=== PATIENT | male | born 1960 ===

== ENCOUNTER 2024-09-12 08:04 | Outpatient (AMB) | payer OTHER, SELFPAY ==
--- NOTE | 2024-09-12 08:12 | MHC.OFFVIS ---
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 Accompanied by: Spouse Allergies amoxicillin Allergy (Verified 09/12/24 08:18) Rash iodine Allergy (Verified 09/12/24 08:18) Unknown meperidine (From Demerol) Allergy (Verified 09/12/24 08:18) Unknown shellfish derived Allergy (Verified 09/12/24 08:18) Unknown Medication List - Last Reconciled 09/12/24 by Aleja Olivas PA-C blood sugar diagnostic (FreeStyle Lite Strips) Uses twice daily as directed for monitoring glucose blood-glucose sensor (FreeStyle Keila 3 Plus Sensor device) As directed blood-glucose,maintenance technician,cont (FreeStyle Keila 3 [place]) As directed dulaglutide (Trulicity) 0.75 mg subcut QWEEK lancets (FreeStyle Lancets) As directed HPI HPI Diabetes Type 2: Details: A 64-year-old male who presents today for an initial consultation regarding his type 2 diabetes. He reports a significant past medical history of hyperlipidemia and states that he is working very hard on diet. Endo: He was diagnosed with diabetes 2019. His last A1c at his PCP's office was 7.6. He is currently on Trulicity 0.75 mg weekly. He states since being on Trulicity his blood sugar numbers have significantly improved. He has also lost weight with this medication and is trying very hard to change his lifestyle. He was previously on metformin but this caused significant diarrhea and GI upset. He has been off of it for about a month in his feeling a lot better. cgm-average use 96%, G mi 6.4%. 0% very hyperglycemic, 2% hyperglycemic, 98% in range, 0% hypoglycemic His mother has type 2 diabetes CV: Blood pressure today in the office is 140/76. He is not on any antihypertensives or statins. He is trying hard to work on his diet to lower his cholesterol. [facility] Medical History (Updated 09/12/24 @ 08:58 by Aelja Olivas PA-C) History of tobacco use History of hyperlipidemia History of type 2 diabetes mellitus Surgical History No pertinent past surgical history Family History Father No problems noted. Mother Type 2 diabetes mellitus Sickle cell disease Brother Type 2 diabetes mellitus Social History Patient Tobacco Use Status: Current everyday Tobacco user Physical Exam Vital Signs: Last Vital Signs Pulse 67 09/12/24 08:13 BP 140/76 H 09/12/24 08:13 Pulse Ox 97 09/12/24 08:13 Oxygen Delivery Method Room Air 09/12/24 08:13 BMI result Body Mass Index 31.2 Const Orientation/consciousness: patient oriented x3 HEENT Ears: hearing grossly normal bilaterally Neck Thyroid: Thyroid normal Lymphatic: no lymphadenopathy noted Resp Auscultation: clear to auscultation bilaterally Cardio Rate: regular rate Rhythm: regular rhythm Heart sounds: S1 normal heart sound present and S2 normal heart sound present Skin General skin exam: no rashes or lesions noted Neuro General: patient oriented x3, gait normal and no focal motor deficits Assessment & Plan Assessment & Plan (1) Controlled type 2 diabetes mellitus: Code(s): E11.9 - Type 2 diabetes mellitus without complications Category: Medical Plan: We spent 65 minutes in [id number] time today reviewing the pathophysiology of diabetes, the differences between type 1 and type 2 diabetes and complications associated with diabetes including but not limited to kidney disease, blindness, increased risk of amputations, infections, stroke, heart attack etc.. I have answered his questions in his 's questions to the best of my ability. We reviewed signs and symptoms of hyper and hypoglycemia that would require emergent medical treatment. Reviewed how to treat low blood sugars. We reviewed his CGM and how to use this today. Backup testing supplies ordered. He will continue with the Trulicity 0.75 mg weekly as this is effective for him. I have referred him to our coconut candy maker as he is very motivated to continue with his healthy lifestyle. He has reduced carbohydrate and sugar intake. His is trying to get him to increase his exercise. He has an appointment coming up with Education. (2) HLD (hyperlipidemia): Code(s): E78.5 - Hyperlipidemia, unspecified Category: Medical Plan: We will monitor labs. Advised to complete labs prior to our next appointment. Orders: Orders Comprehensive Vevay. Panel Fast Today E11.9 - Type 2 diabetes mellitus without complications, E78.5 - Hyperlipidemia, unspecified Lipid Panel Today E11.9 - Type 2 diabetes mellitus without complications, E78.5 - Hyperlipidemia, unspecified Hemoglobin A1c Today E11.9 - Type 2 diabetes mellitus without complications, E78.5 - Hyperlipidemia, unspecified, R73.01 - Impaired fasting glucose UA CC w/rflx Micro + Cult Today E11.9 - Type 2 diabetes mellitus without complications, E78.5 - Hyperlipidemia, unspecified, Z13.220 - Encounter for screening for lipoid disorders Referrals St[facility] Block Roller Nutrition Referral E11.9 - Type 2 diabetes mellitus without complications Podiatry Referral E11.9 - Type 2 diabetes mellitus without complications Medications: New dulaglutide (Trulicity) 0.75 mg (0.5 mL) subcut QWEEK 6 mL 3RF blood sugar diagnostic (FreeStyle Lite Strips) Uses twice daily as directed for monitoring glucose 100 ea 3RF E11.9 - Type 2 diabetes mellitus without complications lancets (FreeStyle Lancets) Use twice a day As directed to monitor blood sugars 100 ea 3RF E11.9 - Type 2 diabetes mellitus without complications Coding Level of Care Code New Pt Level 5 (76759) Complex EM visit Add On G2211 Diagnoses Controlled type 2 diabetes mellitus E11.9 HLD (hyperlipidemia) E78.5
[2024-09-12 08:13] VITALS: BP 140/76; PULSE 67; O2SAT 97; BMI 31.2
[2024-09-12 08:25] LABS: Glucose, Whole Blood 107 mg/dL (60-115)
== END 2024-09-12 09:00 | disposition home or self-care (01) ==
LOC: HO.ENCR 08:04
PROVIDERS: PCP Nurse Practitioner Primary Care; Visit Provider Physician Assistant
DX: E11.9 Type 2 diabetes mellitus without complications (principal); E78.5 Hyperlipidemia, unspecified

== ENCOUNTER → 2024-09-12 08:04 | Outpatient (BNVA) | payer OTHER, SELFPAY | PROVIDERS: PCP Nurse Practitioner Primary Care; Visit Provider Physician Assistant | DX: E11.9 Type 2 diabetes mellitus without complications (principal); E78.5 Hyperlipidemia, unspecified; Z79.85 Long-term (current) use of injectable non-insulin antidiabetic drugs | CPT/HCPCS: 82947 ==

== ENCOUNTER 2024-10-28 12:12 | Outpatient (AMB) | payer OTHER, SELFPAY ==
--- NOTE | 2024-10-28 12:30 | A.OFFVIS_ITS ---
VS Expanded 10/28/24 12:32 10/30/24 21:13 Height 5 ft 8 in 5 ft 8 in Weight 202 lb 6.15 oz 202 lb BMI 30.8 30.7 Intake Visit Reasons: T2DM Allergies amoxicillin Allergy (Verified 09/12/24 08:18) Rash iodine Allergy (Verified 09/12/24 08:18) Unknown meperidine (From Demerol) Allergy (Verified 09/12/24 08:18) Unknown shellfish derived Allergy (Verified 09/12/24 08:18) Unknown Nutrition Presentation Details: Pt presents for MNt for T2DM Pt reports eating a variety of foods, working on diet modifications for gluc control.has questions regarding macro 14 d BG average per CGM 94% WNL, 6% above 180, no hypoglycemia XFN-Zpblthv-Sm.Jeor Equation Height: 5 ft 8 in Weight: 202 lb Resting Metabolic Rate: 1694.80 Calculated Activity Level: Sedentary Calories Needed to Maintain Weight: 2033.76 Diagnosis Nutrition problem #1: food nutri know defi As related to (etiology) #1: diagnosis As evidenced by (sign/symptom) #1: knowledge deficit of diet (omega 3 source of foods) [facility] Medical History (Updated 09/12/24 @ 08:58 by Aleja Olivas PA-C) History of tobacco use History of hyperlipidemia History of type 2 diabetes mellitus Surgical History No pertinent past surgical history Family History Father No problems noted. Mother Type 2 diabetes mellitus Sickle cell disease Brother Type 2 diabetes mellitus Social History Patient Tobacco Use Status: Current everyday Tobacco user Assessment & Plan Assessment & Plan (1) Controlled type 2 diabetes mellitus: Code(s): E11.9 - Type 2 diabetes mellitus without complications Category: Medical Plan: current wt: 92 kg ( 11/06 ) est kcal needs as per MSJ: 2000 est protein needs as per 1 g/kg BW: 90 est fluid needs as per 30 ml/kg BW: 2800' Na <2300mg/d Recommended fiber > 12 g /day and gradually increase up to 25-28 g /day or as tolerated Nutrition topics discussed : Reviewed (R), Pt verbalized understanding (V) , not applicable (N/A) R, V, A : Healthy Plate Method Concept: R, V, : Carbohydrates: food sources of carbohydrates, relationship of carbohydrates to blood glucose, fatty liver GI health. Recommended total amount of carbohydrates per meals and snack. Differences between simple carbohydrates and complex carbohydrates R, V, : Lean protein foods including vegan , vegetarian sources of protein. Benefits of protein (including but not limited to healing, nutritional value , benefits in weight loss, glucose control R, : Fats : Source of fats, benefits of fats. Difference between saturated and unsaturated fats. Saturated fats and its contribution to inflammation R, : Fiber: food sources and role of fiber in the diet (including but not limited to its role as a prebiotic, benefits in constipation, role in IBS , role in glucose control and cholesterol level) R, V, : Hydration: role of hydration and prevention of dehydration or over hydration. Foods and water content. R, V, N/A: Vitamins and Minerals in foods and supplements R, V, N/A: Interpreting food labels, including serving size, macronutrients, vitamins, minerals, allergens, ingredient list , % daily value Patient Instructions: Continue working on reducing on saturated fats (dairy processed meats , fried foods) Include fish at least twice a week and snack on nuts 2-3 times/wk Coding Level of Care Code Nutr Indiv Intake (16969) Diagnoses Controlled type 2 diabetes mellitus E11.9 Time Spent (min) 30
[2024-10-28 12:32] VITALS: BMI 30.8
--- OUTSIDE RECORDS SUMMARY | 2024-10-28 16:18 | XMS_ITS | Clinical Summary ---
Author Organization [facility] Address [address] [facility] [address] [place] [address] Phone Care Team Providers Care Uniform Designer Name Role Phone Shawna Lopez ALICE Unavailable [phone] Estela Russ MD Primary Care Provider Allergies Active Allergy Reactions Criticality Noted Date Comments Amoxicillin 09/20/2018 Shellfish Containing Products 2018 Medications metFORMIN (GLUCOPHAGE) 500 MG tablet TAKE 1 TABLET BY MOUTH FOUR TIMES DAILY FOR A TOTAL DAILY DOSE OF 2000 MG 08/22/2023 Active triamcinolone acetonide 0.5 % cream 08/21/2023 Active cyanocobalamin, vitamin B-12, 1000 MCG tablet Take 1 tablet (1,000 mcg total) by mouth daily. 90 tablet 10/30/2023 Active gabapentin (NEURONTIN) 100 MG capsule Take 1 capsule (100 mg total) by mouth 3 (three) times a day for 5 days. 15 capsule 09/17/2024 Active Active Problems Problem Noted Date Diagnosed Date Leukocytosis 10/16/2023 Assessment & Plan (10/30/2023 10:10 AM EDT): Chronic mild leukocytosis and an otherwise well 63-year-old male, chronic smoker. It is most likely this leukocytosis is secondary to smoking. Patient also reports some dental/oral concerns. He has been seen in the past 6 months by his dentist who told him he would need dentures eventually. There is no evidence of a primary hematologic disorder other than borderline B12 levels on metformin. He will start B12 replacement and follow up with primary care. I have reviewed the importance of smoking cessation. I have answered all questions to his satisfaction. Follow-up on a prn basis. Note will be sent to referring provider. Assessment & Plan (10/16/2023 12:09 PM EDT): Chronic mild leukocytosis and an otherwise well 63-year-old male, chronic smoker. It is most likely this leukocytosis is secondary to smoking. Patient also reports some dental/oral concerns. He has been seen in the past 6 months by his dentist who told him he would need dentures eventually. It is unlikely that he has a primary hematologic disorder and he is up-to-date with cancer screening; however further testing will take place due to his mild fatigue. B12 deficiency more common with chronic metformin administration; will check B12 levels. I have reviewed the importance of smoking cessation. I have answered all questions to his satisfaction. Follow-up in 2 weeks. Chronic fatigue 10/16/2023 Encounters Date Type Department Care Team Description 09/17/2024 7:59 PM EDT - 09/18/2024 12:34 AM EDT Emergency [facility] [address] [place] [id number] Ping Jimenez MD Kanter, Carolyn R, MD Discharge Disposition: Home or Self Care 09/17/2024 Procedure Pass [facility], Ct [address] [address] 09/17/2024 Procedure Pass [facility], [address] [address] from Last 3 Months Social History Tobacco Use Types Packs/Day Years Used Date Smoking Tobacco: Every Day Smokeless Tobacco: Never Alcohol Use Standard Drinks/Week Comments Yes 0 (1 standard drink = 0.6 oz pur e alcohol) Education Answer Date Recorded Are you interested in more education? Not on hiram e 06/08/2022 Are you concerned about learning? Not on file 06/08/2022 No 06/08/2022 No 06/08/2022 Food Answer Date Recorded Within the past 6 months we worried whether our food would run out before we got money to buy more. Never True 09/17/2024 Within the past 6 months the food we bought just didn't last and we didn't have enough money to get more. Never True Residential Stability Answer Date Recor ded What is your housing situation today? I have cely guy 09/17/2024 How many times have you move d in the past 12 months? Zero (I did not move) 09/17/2024 Paying for Meds Answer Date Recorded Do you have trouble paying for medicines? No 09/17/2024 Paying Utility Bills Answer Date Record ed Do you have trouble paying your heating or elect ricity bill? No 09/17/2024 Transportation Answer Date Recorded Has the lack of transportati on kept you from medical appointments or from getting medications? No 09/17/2024 Digital Access Answer Date Recorded No 09/17/2024 Yes 09/17/2024 Do you have reliable internet access at home? Ye s 09/17/2024 Do you have a device (e.g., phone, tablet, computer) with a working camera? Yes 09/17/2024 Intimate Partner Violence Answer Date R ecorded Are you denied basic needs s uch as food, clothing, or medical care? No 09/17/2024 In the past 12 months have y ou been in a relationship with a person who hurts, threatens, or tries to control you? No 09/17/2024 Are you denied basic needs s uch as food, clothing, or medical care? No 09/17/2024 In the past 12 months have y ou been in a relationship with a person who hurts, threatens, or tries to control you? No 09/17/2024 Sex and Gender Information Value Date Recorded Sex Assigned at Male 09/20/2018 5:44 AM EDT Legal Sex Male 7:42 PM EST Gender Identity Male 09/20/2018 5:44 AM EDT Sexual Orientation Straight 09/20/2018 5: 44 AM EDT Last Filed Vital Signs Vital Sign Reading Time Taken Comments Blood Pressure 132/82 09/17/2024 11:16 PM EDT Pulse 68 09/17/2024 11:16 PM EDT Temperature 36.3 C (97.3 F) 09/17/2024 11:16 PM EDT Respiratory Rate 16 09/17/2024 11:16 PM EDT Oxygen Saturation 96% 09/17/2024 11:16 PM EDT Inhaled Oxygen Concentration - - Weight 91.6 kg (202 lb) 09/17/2024 6:49 PM EDT Height 172.7 cm (5' 8 ) 09/17/2024 6:49 PM EDT Body Mass Index 30.71 09/17/2024 6:49 PM EDT Plan of Treatment Health Maintenance Due Date Last Done Comments LIPID PANEL 1962 DEPRESSION SCREENING 1974 SMOKING Hx and SMOKELESS TOBACCO SCREENING 06/10/1975 HEPATITIS C SCREENING 1980 HIV ONE-TIME SCREENING (18-6 5 YEARS) 1980 PNEUMOCOCCAL VACCINES (50+ years) (1 of 2 - PCV) 1981 COLOGUARD 06/10/2007 COLONOSCOPY 06/10/2007 COLORECTAL CANCER SCREENING 06/10/2007 FIT TEST 06/10/2007 FOBT 06/10/2007 SIGMOIDOSCOPY 06/10/2007 VIRTUAL COLONOSCOPY 06/10/2007 ZOSTER VACCINES (1 of 2) 2012 INFLUENZA VACCINE (#1) 2024 01/21/2020 COVID-19 VACCINE (3 - 2024-2 6 season) 2024 05/11/2020, 04/13/2020 CREATININE LEVEL 09/17/2025 09/17/2024, 10/16/2023 SCREENING FOR DIABETES 09/18/2027 09/17/2024 Adult Td,Tdap Booster 02/28/2030 02/29/2020 RSV VACCINE (1 - 1-dose 75+ series) 2037 HEPATITIS A VACCINES Aged Out No long er eligible based on patient's age to complete this topic HIB VACCINES Aged Out No longer eligi ble based on patient's age to complete this topic MENINGOCOCCAL VACCINES (ACWY) Aged Out No longer eligible based on patient's age to complete this topic MENINGOCOCCAL VACCINES (B) Aged Out N o longer eligible based on patient's age to complete this topic Medical Devices Not on file Procedures Procedure Name Priority Date/Time Associated Diagnosis Comments LYME SCREEN WITH REFLEX TO WESTERN BLOT, BLOOD STAT 09/17/2024 10:36 PM EDT BABESIA SPECIES PCR STAT 09/17/2024 1 0:36 PM EDT MALARIA/BABESIA EXAM STAT 09/17/2024 10:36 PM EDT Ehrlichia/anaplasma PCR STAT 09/17/2024 10:[address] CERVICAL SPINE WITHOUT CONTRAST Routine 09/17/2024 9:[address] HEAD WITHOUT CONTRAST Routine 09/17/2024 9:40 PM EDT SEDIMENTATION RATE (ESR) STAT 09/17/2024 8:36 PM EDT C-REACTIVE PROTEIN STAT 09/17/2024 8: 36 PM EDT URIC ACID STAT 09/17/2024 8:36 PM EDT MAGNESIUM STAT 09/17/2024 8:36 PM EDT LFTS (HEPATIC PANEL) STAT 09/17/2024 8:36 PM EDT BASIC METABOLIC PANEL STAT 09/17/2024 8:36 PM EDT CBC AND DIFFERENTIAL STAT 09/17/2024 8:36 PM EDT from Last 3 Months Results * Babesia species PCR (09/17/2024 10:36 PM EDT) B.Microti PCR Negative Negative [facility] DPT OF LAB MED AND PAT+ B.Duncani PCR Negative Negative [facility] DPT OF LAB MED AND PAT+ B.Divergens/MO-1 PCR Negative Negative [facility] DPT OF LAB MED AND PAT+ Comment: (NOTE) ADDITIONAL INFORMATION This test was developed and its performance characteristics determined by [facility] in a manner consistent with CLIA requirements. This test has not been cleared or approved by the U.S. Food and Drug Administration. Blood 09/17/2024 10:3 6 PM EDT 09/17/2024 10:51 PM EDT Ping Jimenez MD LAB BLOOD ORDERABLES Lupis l Result Performing Organization Address City/[facility]/ZIP Co de Phone Number [facility] DPT OF LAB MED AND PAT+ [address] [place] [address] * Ehrlichia/anaplasma PCR (09/17/2024 10:36 PM EDT) ANAPLASMA PHAGOCYTO Negative Negative [facility] DPT OF LAB MED AND PAT+ EHRLICHIA CHAFFEENS Negative Negative [facility] DPT OF LAB MED AND PAT+ EHRL EWINGII/CANIS Negative Negative [facility] DPT OF LAB MED AND PAT+ EHRL MURIS-LIKE Negative Negative [facility] DPT OF LAB MED AND PAT+ Comment: (NOTE) ADDITIONAL INFORMATION This test was developed and its performance characteristics determined by [facility] in a manner consistent with CLIA requirements. This test has not been cleared or approved by the U.S. Food and Drug Administration. Blood 09/17/2024 10:3 6 PM EDT 09/17/2024 10:51 PM EDT Ping Jimenez MD LAB BLOOD ORDERABLES Lupis l Result Performing Organization Address City/[facility]/ZIP Co de Phone Number [facility] DPT OF LAB MED AND PAT+ [address] [place] [address] * Lyme Screen with Reflex to Immunoblot, Blood (09/17/2024 10:36 PM EDT) Lyme AB IgG Negative Negative [facility] Lyme AB IgM Negative Negative [facility] Blood 09/17/2024 10:3 6 PM EDT 09/17/2024 10:51 PM EDT us Ping Jimenez MD LAB BLOOD ORDERABLES Lupis l Result Performing Organization Address City/[facility]/ZIP Co de Phone Number [address] [address] * MALARIA/BABESIA EXAM (09/17/2024 10:36 PM EDT) Special Requests None 09/17/2024 10:21 PM EDT [facility] MALARIA SMEAR No Malaria or Babesia observed 09/18/2024 7:17 AM EDT [facility] Blood (Blood) 09/17/2024 10: 36 PM EDT 09/17/2024 10:51 PM EDT Ping Jimenez MD NON CULTURE MICROBIOLOGY Final Result Performing Organization Address [facility] Co de Phone Number [address] [address] * CT CERVICAL SPINE WITHOUT CONTRAST (09/17/2024 9:40 PM EDT) Anatomical Region Laterality Modality C-spine Computed Tomogra phy 09/17/2024 10:4 1 PM EDT Impressions 09/17/2024 11:46 PM EDT 1. No acute intracranial findings. No intracranial mass. 2. No acute fracture or traumatic malalignment of the cervical spine. ATTESTATION: I, Tor Garay as teaching physician, have reviewed the images for this case and if necessary edited the report originally created by Naga Magallon. Narrative 09/17/2024 11:[address] HEAD WITHOUT CONTRAST, CT CERVICAL SPINE WITHOUT CONTRAST Referring clinician's provided indication for this examination in Epic: * Brain mass or lesion; r/o brain mass or lesion, patient having worsening neck pain, r/o fractures TECHNIQUE: CTs of the head and cervical spine were performed without intravenous contrast using tailored dose modulation techniques. Images were reconstructed in the axial, coronal, and sagittal planes. COMPARISON: None. FINDINGS: HEAD: Brain Parenchyma: No midline shift, mass effect, parenchymal hemorrhage, or evidence of acute territorial infarct. Ventricular System and Extra-Axial Spaces: No extra-axial fluid collections. Basal cisterns are patent. No hydrocephalus. Osseous and Extracranial Structures: No calvarial fracture or significant soft tissue hematoma. Mucosal thickening within bilateral maxillary sinuses and ethmoid air cells. No orbital abnormality. CERVICAL SPINE: Alignment and Vertebrae: Alignment is normal. Vertebral bodies and posterior elements are intact. Discs and Endplates: Mild degenerative changes of the spine. Other Findings: None. Procedure Note Tor Garay, DO - 09/17/2024 CT HEAD WITHOUT CONTRAST, CT CERVICAL SPINE WITHOUT CONTRAST Referring clinician's provided indication for this examination in Epic: *Brain mass or lesion; r/o brain mass or lesion, patient having worseningneck pain, r/o fractures TECHNIQUE: CTs of the head and cervical spine were performed withoutintravenous contrast using tailored dose modulation techniques. Imageswere reconstructed in the axial, coronal, and sagittal planes. COMPARISON: None. FINDINGS: HEAD: Brain Parenchyma: No midline shift, mass effect, parenchymal hemorrhage,or evidence of acute territorial infarct. Ventricular System and Extra-Axial Spaces: No extra-axial fluidcollections. Basal cisterns are patent. No hydrocephalus. Osseous and Extracranial Structures: No calvarial fracture or significantsoft tissue hematoma. Mucosal thickening within bilateral maxillarysinuses and ethmoid air cells. No orbital abnormality. CERVICAL SPINE: Alignment and Vertebrae: Alignment is normal. Vertebral bodies andposterior elements are intact. Discs and Endplates: Mild degenerative changes of the spine. Other Findings: None. IMPRESSION: 1. No acute intracranial findings. No intracranial mass. 2. No acute fracture or traumatic malalignment of the cervical spine. ATTESTATION: I, Tor Garay as teaching physician, have reviewed theimages for this case and if necessary edited the report originally createdby Naga Magallon. us Ping Jimenez MD IMG CT XSPECIALTY ORDERAB LES Final Result * CT HEAD WITHOUT CONTRAST (09/17/2024 9:40 PM EDT) Anatomical Region Laterality Modality Head Computed Tomogra phy 09/17/2024 10:4 1 PM EDT Impressions 09/17/2024 11:46 PM EDT 1. No acute intracranial findings. No intracranial mass. 2. No acute fracture or traumatic malalignment of the cervical spine. ATTESTATION: I, Tor Garay as teaching physician, have reviewed the images for this case and if necessary edited the report originally created by Naga Magallon. Narrative 09/17/2024 11:[address] HEAD WITHOUT CONTRAST, CT CERVICAL SPINE WITHOUT CONTRAST Referring clinician's provided indication for this examination in [facility]: * Brain mass or lesion; r/o brain mass or lesion, patient having worsening neck pain, r/o fractures TECHNIQUE: CTs of the head and cervical spine were performed without intravenous contrast using tailored dose modulation techniques. Images were reconstructed in the axial, coronal, and sagittal planes. COMPARISON: None. FINDINGS: HEAD: Brain Parenchyma: No midline shift, mass effect, parenchymal hemorrhage, or evidence of acute territorial infarct. Ventricular System and Extra-Axial Spaces: No extra-axial fluid collections. Basal cisterns are patent. No hydrocephalus. Osseous and Extracranial Structures: No calvarial fracture or significant soft tissue hematoma. Mucosal thickening within bilateral maxillary sinuses and ethmoid air cells. No orbital abnormality. CERVICAL SPINE: Alignment and Vertebrae: Alignment is normal. Vertebral bodies and posterior elements are intact. Discs and Endplates: Mild degenerative changes of the spine. Other Findings: None. Procedure Note Tor Garay, DO - 09/17/2024 CT HEAD WITHOUT CONTRAST, CT CERVICAL SPINE WITHOUT CONTRAST Referring clinician's provided indication for this examination in [facility]: *Brain mass or lesion; r/o brain mass or lesion, patient having worseningneck pain, r/o fractures TECHNIQUE: CTs of the head and cervical spine were performed withoutintravenous contrast using tailored dose modulation techniques. Imageswere reconstructed in the axial, coronal, and sagittal planes. COMPARISON: None. FINDINGS: HEAD: Brain Parenchyma: No midline shift, mass effect, parenchymal hemorrhage,or evidence of acute territorial infarct. Ventricular System and Extra-Axial Spaces: No extra-axial fluidcollections. Basal cisterns are patent. No hydrocephalus. Osseous and Extracranial Structures: No calvarial fracture or significantsoft tissue hematoma. Mucosal thickening within bilateral maxillarysinuses and ethmoid air cells. No orbital abnormality. CERVICAL SPINE: Alignment and Vertebrae: Alignment is normal. Vertebral bodies andposterior elements are intact. Discs and Endplates: Mild degenerative changes of the spine. Other Findings: None. IMPRESSION: 1. No acute intracranial findings. No intracranial mass. 2. No acute fracture or traumatic malalignment of the cervical spine. ATTESTATION: I, Tor Garay as teaching physician, have reviewed theimages for this case and if necessary edited the report originally createdby Naga Magallon. Ping Jimenez MD IMG CT HEAD/NECK Final Re sult * LFTs (hepatic panel) (09/17/2024 8:36 PM EDT) ALKALINE PHOSPHATASE 57 39 - 117 U/L [facility] TOTAL BILIRUBIN <0.2 0.0 - 1.2 mg/dL [facility] DIRECT BILIRUBIN <0.1 0.0 - 0.2 mg/dL [facility] Bilirubin (Indirect) NOT CALCULATED 0 - 1.5 mg/dL [facility] AST 15 0 - 37 U/L [facility] ALT 22 0 - 40 U/L [facility] TOTAL PROTEIN 7.2 6.5 - 8.0 g/dL [facility] ALBUMIN 4.4 3.9 - 4.8 g/dL [facility] GLOBULIN 2.8 1 - 4.8 g/dL [facility] A/G Ratio 1.57 1.00 - 4.80 RATIO [facility] Blood 09/17/2024 8:36 PM EDT 09/17/2024 8:41 PM EDT Ping Jimenez MD LAB BLOOD ORDERABLES Lupis l Result [facility] [address] [place] [address] * Sedimentation rate (ESR) (09/17/2024 8:36 PM EDT) ESR 17 0 - 20 mm/h [facility] Blood 09/17/2024 8:36 PM EDT 09/17/2024 8:41 PM EDT us Ping Jimenez MD LAB BLOOD ORDERABLES Lupis l Result [facility] [address] [place] [address] * (ABNORMAL) CBC and differential (09/17/2024 8:36 PM EDT) WBC 12.11(H) 4.00 - 11.00 K/uL [facility] RBC 5.22 4.50 - 5.90 M/uL [facility] HGB 14.9 13.5 - 17.5 g/dL [facility] HCT 45.7 41.0 - 53.0 % [facility] PLT 347 150 - 450 K/uL [facility] MCV 87.5 80.0 - 100.0 fL [facility] MCH 28.5 27.0 - 31.0 pg [facility] MCHC 32.6 32.0 - 36.0 g/dL [facility] RDW 12.5 11.5 - 14.5 % [facility] MPV 9.9 8.4 - 12.0 fL [facility] NRBC 0.00 0.00 /100 WBCs [facility] ABSOLUTE NRBC 0.00 0.00 K/uL [facility] DIFF METHOD Auto [facility] NEUTS 54.3 48.0 - 76.0 % [facility] LYMPHS 34.0 18.0 - 41.0 % [facility] MONOS 7.8 4.0 - 11.0 % [facility] EOS 3.1 0.0 - 5.0 % [facility] BASOS 0.4 0.0 - 1.5 % [facility] Granulocytes, immature (%) 0.4 0.0 - 0.9 % [facility] ABSOLUTE NEUTS 6.58 1.92 - 7.60 K/uL [facility] ABSOLUTE LYMPHS 4.12(H) 0.72 - 4.10 K/uL [facility] ABSOLUTE MONOS 0.94 0.16 - 1.10 K/uL [facility] ABSOLUTE EOS 0.37 0.00 - 0.50 K/uL [facility] ABSOLUTE BASOS 0.05 0.00 - 0.15 K/uL [facility] Granulocytes, immature 0.05 0.00 - 0.09 K/uL [facility] Blood 09/17/2024 8:36 PM EDT 09/17/2024 8:41 PM EDT us Ping Jimenez MD LAB BLOOD ORDERABLES Lupis l Result Performing Organization Address [facility]/ZIP Co de Phone Number [address] [address] * C-Reactive Protein (09/17/2024 8:36 PM EDT) C REACTIVE PROTEIN <3.0 0.0 - 4.0 mg/L [facility] Blood 09/17/2024 8:36 PM EDT 09/17/2024 8:41 PM EDT us Ping Jimenez MD LAB BLOOD ORDERABLES Lupis l Result Performing Organization Address [facility]/ZIP Co de Phone Number [address] [address] * Uric acid (09/17/2024 8:36 PM EDT) URIC ACID 6.4 2.4 - 7.0 mg/dL [facility] Blood 09/17/2024 8:36 PM EDT 09/17/2024 8:41 PM EDT us Ping Jimenez MD LAB BLOOD ORDERABLES Lupis l Result Performing Organization Address City/[facility]/ZIP Co de Phone Number [address] [address] * Magnesium (09/17/2024 8:36 PM EDT) MAGNESIUM 2.1 1.6 - 2.6 mg/dL [facility] Blood 09/17/2024 8:36 PM EDT 09/17/2024 8:41 PM EDT Ping Jimenez MD LAB BLOOD ORDERABLES Lupis l Result Performing Organization Address [facility]/ZIP Co de Phone Number [address] [address] * (ABNORMAL) Basic metabolic panel (09/17/2024 8:36 PM EDT) SODIUM 140 133 - 146 mmol/L [facility] CHLORIDE 106 96 - 108 mmol/L [facility] POTASSIUM 4.2 3.3 - 5.1 mmol/L [facility] Comment:Specimen slightly he molyzed, result may be falsely elevated. CO2 22 21 - 35 mmol/L [facility] BUN 22(H) 6 - 19 mg/dL [facility] CREATININE 0.80 0.5 - 1.5 mg/dL [facility] GLUCOSE 118(H) 70 - 99 mg/dL [facility] CALCIUM 9.5 8.4 - 10.3 mg/dL [facility] EGFR 100 >59 mL/min/1.7 3m2 [facility] Comment:Estimated glomerular filtration rate calculated using the CKD-EPI refit equation. ANION GAP 16 10 - 20 mmol/L [facility] Blood 09/17/2024 8:36 PM EDT 09/17/2024 8:41 PM EDT Ping Jimenez MD LAB BLOOD ORDERABLES Lupis l Result Performing Organization Address [facility]/ZIP Co de Phone Number [address] [address] from Last [address] [place] [address] [place], [place] [id number] HMO O O Care Teams Uniform Designer Relationship Specialty Start Date End Date Estela Russ MD [address] [place] [address] juan PCP - General Family Medicine 10/16/23 Shawna Lopez MBBS [email or web address] Medical Oncology 09/21/23 Additional Source Comments The information contained in this document represents components of the legal health record. It is not the complete legal health record.[facility]
--- OUTSIDE RECORDS SUMMARY | 2024-10-28 16:18 | XMS_ITS | Encounter Summary ---
Author Organization [facility] Address [address] [place] [address] Phone Care Team Providers Care Backend Developer Name Role Phone Shawna Lopez CANDE Unavailable [phone] Estela Russ MD Primary Care Provider [phone] Encounter Details Date Type Department Care Team (Late st Contact Info) Description 09/17/2024 Procedure Pass [facility], Ct Scan - [address] [address] Social History Tobacco Use Types Packs/Day Years [...] your housing situation today? I have cely sing 09/17/2024 How many times have you move [...] Orientation Straight 09/20/2018 5: 44 AM EDT documented as of this encounter Functional Status * Calculated C-SSRS Risk Score (Lifetime/Recent) Answer Date of Assessment Author No Risk Indicated 09/17/2024 6:54 PM EDT Maki Quintana RN * [place] Suicide Severity Rating Scale (Screener/Recent Self-Report) Question Answer Date of Assessment Author 1. Wish to be (Past 1 Month) No 025 6:54 PM EDT Maki Gill RN 2. Non-Specific Active Suici maddy Thoughts (Past 1 Month) No 09/17/2024 6:54 PM EDT Branden Gill RN 6. Suicidal Behavior (Lifetime) No 6:54 PM EDT Maki Gill RN documented as of this encounter Plan of Treatment Not on file documented as of this encounter Visit Diagnoses Not on filedocumented in this encounter Care Teams Backend Developer Relationship Specialty Start Date End Date Estela Russ MD [address] [place] [id number] [email or web address] PCP - General Family Medicine 10/16/23 Shawna Lopez MBBS [email or web address] Medical Oncology 09/21/23 documented as of this encounter Additional Source Comments The information contained in this document represents components of the legal health record. It is not the complete legal health record.[facility]
--- OUTSIDE RECORDS SUMMARY | 2024-10-28 16:18 | XMS_ITS | Encounter Summary ---
Author Organization [facility] Address [address] [place] [address] Phone Care Team Providers Care Weekend Receptionist Name Role Phone Shawna Lopez CANDE Unavailable [phone] Estela Russ MD Primary Care Provider [phone] Encounter Details Date Type Department Care Team (Late st Contact Info) Description 09/17/2024 Procedure Pass [facility], Ct Scan - [address] [address] Social History Tobacco Use Types Packs/Day Years [...] 6:54 PM EDT Maki Quintana RN * [place] Suicide Severity Rating Scale (Screener/Recent Self-Report) Question [...] on filedocumented in this encounter Care Teams Weekend Receptionist Relationship Specialty Start Date End Date Estela Russ MD [address] [place] [address] [email or web address] PCP - General Family Medicine 10/16/23 Shawna Lopez MBBS [email or web address] Medical Oncology 09/21/23 documented as of this encounter Additional Source Comments The information contained in this document represents components of the legal health record. It is not the complete legal health record.[facility]
--- OUTSIDE RECORDS SUMMARY | 2024-10-28 16:18 | XMS_ITS | Encounter Summary ---
Author Organization [facility] Address [address] [facility] [address] [place] [address] Phone Care Team Providers Care Yard Pipe Grader Name Role Phone Estela Russ MD Primary Care Provider [phone] Shawna Lopez MB Unavailable [phone] Estela Russ MD Primary Care Provider [phone] Reason for Referral * MRI/CAT Scan - Closed Specialty Diagnoses / Procedures Referred By Leatha hanna Referred To Contact Radiology Diagnoses Nicotine dependence, cigarettes, uncomplicated Procedures CT Chest Lung Cancer Screening CHG COMPUTED TOMOGRAPHY THORAX LW DOSE LNG CA SCR C- Yuly Esqueda NP [address] [place] [address] Phone: tel: fax: Referral ID Status Reason Start Date Expiration Date Visits Re quested Visits Authorized [id number] Closed 11/23/2021 02/20/2022 1 1 Encounter Details Date Type Department Care Team (Late st Contact Info) Description 11/23/2021 Transcribe Orders Virtual Department [address] [place] [address] Yuly Esqueda NP [address] [place], [place] [phone] Nicotine dependence, cigarettes, uncomplicated (Primary Dx) Social History Tobacco Use Types Packs/Day Years Used Date Smoking Tobacco: Every Day Smokeless Tobacco: Never Alcohol Use Standard Drinks/Week Comments Yes 0 (1 standard drink = 0.6 oz pur e alcohol) Sex and Gender Information Value Date Recorded Sex Assigned at Male 09/20/2018 5:44 AM EDT Legal Sex Male 7:42 PM EST Gender Identity Male 09/20/2018 5:44 AM EDT Sexual Orientation Straight 09/20/2018 5: 44 AM EDT documented as of this encounter Plan of Treatment Not on file documented as of this encounter Results * CT CHEST LUNG CANCER SCREENING ANNUAL (01/31/2022 8:08 AM EST) Anatomical Region Laterality Modality Chest Computed Tomogra phy 02/01/2022 8:22 AM EST Impressions 02/01/2022 8:54 AM EST Multiple scattered pulmonary nodules the largest of which measures up to 5 mm. Lung-RADS Category: 2. RECOMMENDATIONS: Continue CT Chest Lung Screening Annual exam if patient meets eligibility criteria. To order, please type CT CHEST SCREENING ([email or web address]) and select ANNUAL for patient program status. Explanation of the Lung-RADS categories can be found at: [email or web address] Narrative 02/01/2022 8:[address] CHEST LUNG CANCER SCREENING ANNUAL TECHNIQUE: Low dose multidetector CT of the chest was performed without intravenous contrast using tailored dose modulation techniques. COMPARISON: There is no prior study available for FINDINGS: Devices/Tubes/Lines: None. Lungs: There is a 5 mm nodule at the anterior left upper lobe (4:180). There are scattered additional 2 to 3 mm nodules (4:77, 281, 235, 236, 247, and 178). No focal consolidation. The central airways are clear. Pleura: No pleural effusion or pneumothorax. Mediastinum: Atherosclerotic calcification of the aorta and major aortic branch vessels. No thyroid nodules. The heart is normal in size. There is no pericardial effusion. Mild amount of coronary calcifications. Lymph Nodes: No enlarged supraclavicular, axillary, mediastinal, or hilar lymph nodes. Upper Abdomen: Absence of intravenous contrast and low dose technique limits sensitivity for detecting small lesions, solid organ and vascular findings. No abnormality detected in the visualized upper abdomen. Chest Wall: No chest wall mass. Bones: Mild multilevel degenerative changes of the spine. Degenerative changes of the superior endplate of T5 mild height loss. No focal osseous lesions. Procedure Note Valerie Kelly MD - 02/01/2022 CT CHEST LUNG CANCER SCREENING ANNUAL TECHNIQUE: Low dose multidetector CT of the chest was performed withoutintravenous contrast using tailored dose modulation techniques. COMPARISON: There is no prior study available for FINDINGS: Devices/Tubes/Lines: None. Lungs: There is a 5 mm nodule at the anterior left upper lobe (4:180).There are scattered additional 2 to 3 mm nodules (4:77, 281, 235, 236,247, and 178). No focal consolidation. The central airways are clear. Pleura: No pleural effusion or pneumothorax. Mediastinum: Atherosclerotic calcification of the aorta and major aorticbranch vessels. No thyroid nodules. The heart is normal in size. There isno pericardial effusion. Mild amount of coronary calcifications. Lymph Nodes: No enlarged supraclavicular, axillary, mediastinal, or hilarlymph nodes. Upper Abdomen: Absence of intravenous contrast and low dose techniquelimits sensitivity for detecting small lesions, solid organ and vascularfindings. No abnormality detected in the visualized upper abdomen. Chest Wall: No chest wall mass. Bones: Mild multilevel degenerative changes of the spine. Degenerativechanges of the superior endplate of T5 mild height loss. No focal osseouslesions. IMPRESSION: Multiple scattered pulmonary nodules the largest of which measures up to 5mm. Lung-RADS Category: 2. RECOMMENDATIONS: Continue CT Chest Lung Screening Annual exam if patient meets eligibilitycriteria. To order, please type CT CHEST SCREENING (CT.TH.CHESTSCR) and selectANNUAL for patient program status. Explanation of the Lung-RADS categories can be found at:[email or web address] Yuly Esqueda NP IMG CT CHEST Final R esult documented in this encounter Visit Diagnoses Diagnosis Nicotine dependence, cigarettes, uncomplicated- Primary Nicotine dependence, cigarettes, uncomplicated documented in this encounter Care Teams Yard Pipe Grader Relationship Specialty Start Date End Date Estela Russ MD [email or web address] PCP - General Family Medicine 07/09/21 10/15/23 Estela Russ MD [address] [place] [address] [email or web address] PCP - General Family Medicine 10/16/23 Shawna Lopez MBBS [email or web address] Medical Oncology 09/21/23 documented as of this encounter Additional Source Comments The information contained in this document represents components of the legal health record. It is not the complete legal health record.[facility]
--- OUTSIDE RECORDS SUMMARY | 2024-10-28 16:18 | XMS_ITS | Encounter Summary ---
Author Organization [facility] Address [address] [facility] [address] [place] [address] Phone Care Team Providers Care Warehouse Receiving Clerk Name Role Phone Estela Russ MD Primary Care Provider [phone] Shawna LopezBS Unavailable [phone] Estela Russ MD Primary Care Provider [phone] Encounter Details Date Type Department Care Team (Late st Contact Info) Description 11/23/2021 Procedure Pass [facility], Ct Scan - [address] [address] Social History Tobacco Use Types Packs/Day Years [...] on filedocumented in this encounter Care Teams Warehouse Receiving Clerk Relationship Specialty Start Date End Date Estela Russ MD [email or web address] PCP - General Family Medicine 07/09/21 10/15/23 Estela Russ MD [address] [place] [address] [email or web address] PCP - General Family Medicine 10/16/23 Shawna Lopez MBBS [email or web address] Medical Oncology 09/21/23 documented as of this encounter Additional Source Comments The information contained in this document represents components of the legal health record. It is not the complete legal health record.[facility]
[2024-10-30 21:13] VITALS: BMI 30.7
== END 2024-10-28 13:12 | disposition home or self-care (01) ==
LOC: HO.ENCR 12:13
PROVIDERS: PCP Nurse Practitioner Primary Care; Visit Provider Dietitian, Registered
DX: E11.9 Type 2 diabetes mellitus without complications (principal)

== ENCOUNTER → 2024-10-28 12:12 | Outpatient (BNVA) | payer OTHER, SELFPAY | PROVIDERS: PCP Nurse Practitioner Primary Care; Visit Provider Dietitian, Registered | DX: E11.9 Type 2 diabetes mellitus without complications (principal) | CPT/HCPCS: 97802 ==

== ENCOUNTER 2025-01-02 07:48 | Outpatient (AMB) | payer OTHER, SELFPAY ==
--- OUTSIDE RECORDS SUMMARY | 2024-12-02 13:22 | XMS_ITS | Encounter Summary ---
Author Organization [facility] Address [address] [place] [address] Phone Care Team Providers Care Legal Internship Name Role Phone Shawna Lopez CANDE Unavailable [phone] Estela Russ MD Primary Care Provider Encounter Details Date Type Department Care Team (Late st Contact Info) Description 12/02/2024 2:22 PM EDT Hospital Encounter [facility] [address] [place] [address] Ladonna Ng CNP [address] [place] [address] [email or web address] Social History Tobacco Use Types Packs/Day Years [...] on file documented as of this encounter Procedures Procedure Name Priority Date/Time Associated Diagnosis Comments XR FINGER 2 OR MORE VIEWS (LEFT) Urgent/patient waiting 12/02/2024 2:26 PM EDT Infected sliver of skin of finger, initial encounter documented in this encounter Results * XR FINGER 2 OR MORE VIEWS (LEFT) (12/02/2024 2:26 PM EDT) Anatomical Region Laterality Modality Hand Left Computed Radiogr aphy 12/02/2024 3:23 PM EDT Impressions 12/02/2024 3:26 PM EDT No fracture or dislocation. No radiopaque foreign body. Narrative 12/02/2024 3:26 PM EDT XR FINGER 2 OR MORE VIEWS (LEFT) Referring clinician's provided indication for this examination in Epic: Infection; ? foreign body- primed wood- palmar srface PIP flexure COMPARISON: FINDINGS: No fracture. Normal alignment. Normal joint spaces. No evidence of osteomyelitis. Mild soft tissue swelling along the second proximal interphalangeal joint with small laceration. No radiopaque foreign body. Procedure Note Makayla Willoughby MBBS - 12/02/2024 XR FINGER 2 OR MORE VIEWS (LEFT) Referring clinician's provided indication for this examination in Epic:Infection; ? foreign body- primed wood- palmar srface PIP flexure COMPARISON: FINDINGS: No fracture. Normal alignment. Normal joint spaces. No evidence ofosteomyelitis. Mild soft tissue swelling along the second proximalinterphalangeal joint with small laceration. No radiopaque foreign body. IMPRESSION: No fracture or dislocation. No radiopaque foreign body. Ladonna Ng MATERIAL PLANNING ANALYST IMG XR UPPER EXTREMITY Lupis l Result documented in this encounter Visit Diagnoses Not on filedocumented in this encounter Care Teams Legal Internship Relationship Specialty Start Date End Date Estela Russ MD [address] [place] [address] [email or web address] PCP - General Family Medicine 10/16/23 Shawna Lopez MBBS [address] [place] [address] Medical Oncology 09/21/23 documented as of this encounter Additional Source Comments The information contained in this document represents components of the legal health record. It is not the complete legal health record.[facility]
--- OUTSIDE RECORDS SUMMARY | 2025-01-02 07:50 | XMS_ITS | Encounter Summary ---
Author Organization [facility] Address [address] [facility] [place] [address] [place] [address] Phone Care Team Providers Care Block Breaker Operator Name Role Phone Estela Russ MD Primary Care Provider [phone] Shawna Lopez MB Unavailable [phone] Estela Russ MD Primary Care Provider [phone] Reason for Referral * MRI/CAT Scan - Closed Specialty Diagnoses / Procedures Referred By Leatha hanna Referred To Contact Radiology Diagnoses Nicotine dependence, cigarettes, uncomplicated Procedures CT Chest Lung Cancer Screening CHG COMPUTED TOMOGRAPHY THORAX LW DOSE LNG CA SCR C- Yuly Esqueda NP [address] [place] [phone] Phone: tel: fax: Referral ID Status Reason Start Date Expiration Date Visits Re quested Visits Authorized [id number] Closed 11/23/2021 02/20/2022 1 1 Encounter Details Date Type Department Care Team (Late st Contact Info) Description 11/23/2021 Transcribe Orders Virtual Department [address] [place] [address] Yuly Esqueda NP [address] [place], [place] [phone] Nicotine dependence, cigarettes, uncomplicated (Primary Dx) Social [...] uncomplicated documented in this encounter Care Teams Block Breaker Operator Relationship Specialty Start Date End Date Estela Russ MD [email or web address] PCP - General Family Medicine 07/09/21 10/15/23 Estela Russ MD [address] [place] [address] [email or web address] PCP - General Family Medicine 10/16/23 Shawna Lopez MBBS [address] [place] [address] [email or web address] Medical Oncology 09/21/23 documented as of this encounter Additional Source Comments The information contained in this document represents components of the legal health record. It is not the complete legal health record.[facility]
--- OUTSIDE RECORDS SUMMARY | 2025-01-02 07:51 | XMS_ITS | Clinical Summary ---
Author Organization [facility] Address [address] [facility] [address] [place] [address] Phone Care Team Providers Care Bookkeeping Machine Mechanic Name Role Phone Shawna Lopez ALICE Unavailable [phone] Estela Russ MD Primary Care Provider Allergies Active Allergy Reactions Criticality Noted Date Comments Amoxicillin 09/20/2018 Shellfish Containing Products 2018 Medications metFORMIN (GLUCOPHAGE) 500 MG tablet TAKE 1 TABLET BY MOUTH FOUR TIMES DAILY FOR A TOTAL DAILY DOSE OF 2000 MG 08/22/19 24 Active triamcinolone acetonide 0.5 % cream 08/21/19 24 Active cyanocobalamin, vitamin B-12, 1000 MCG tablet Take 1 tablet (1,000 mcg total) by mouth daily. 90 tablet 10/30/19 24 Active gabapentin (NEURONTIN) 100 MG capsule Take 1 capsule (100 mg total) by mouth 3 (three) times a day for 5 days. 15 capsule 09/18/19 25 Active TRULICITY 0.75 mg/0.5 mL subcutaneous injection ADMINISTER 0.75 MG UNDER THE SKIN EVERY WEEK 10/30/19 25 Active FREESTYLE YESICA 3 PLUS SENSOR Mallory 11/20/19 25 Active FREESTYLE LITE Strp strips USE TWICE DAILY DIRECTED FOR MONITORING GLUCOSE 09/13/19 25 Active sulfamethoxazole -trimethoprim (BACTRIM DS) 800-160 mg per tablet Take 1 tablet (160 mg of trimethoprim total) by mouth 2 (two) times a day for 7 days. 14 tablet 10/ 025 Active Problems Problem Noted Date Diagnosed Date [...] Encounters Date Type Department Care Team Description 12/02/2024 2:22 PM EDT Hospital Encounter [facility] [address] [place] [address] Ladonna Ng CNP 12/02/2024 1:40 PM EDT Office Visit [facility] at [address] [address] Ladonna Ng CNP Infected sliver of skin of finger, initial encounter (Primary Dx) from Last 3 Months Immunizations No known immunizations Social History Tobacco Use Types Packs/Day Years [...] Sign Reading Time Taken Comments Blood Pressure 122/78 12/02/2024 1:47 PM EDT Pulse 74 12/02/2024 1:47 PM EDT Temperature 36.6 C (97.9 F) 12/02/2024 1:47 PM EDT Respiratory Rate 16 12/02/2024 1:47 PM EDT Oxygen Saturation 97% 12/02/2024 1:4 7 PM EDT Inhaled Oxygen Concentration - - Weight 89.8 kg (198 lb) 12/02/2024 1:47 PM EDT patient reported Height 172.7 cm (5' 8 ) 12/02/2024 1:47 PM EDT patient reported Body Mass Index 30.11 12/02/2024 1:47 PM EDT Plan of Treatment Health Maintenance Due Date Last Done Comments LIPID PANEL 1962 DEPRESSION SCREENING 1974 SMOKING Hx and SMOKELESS TOBACCO SCREENING 06/10/1975 HEPATITIS C SCREENING 1980 HIV ONE-TIME SCREENING (18-65 YEARS) 1980 COLOGUARD 06/10/2007 COLONOSCOPY 06/10/2007 COLORECTAL CANCER SCREENING 06/10/2007 FIT TEST 06/10/2007 FOBT 06/10/2007 SIGMOIDOSCOPY 06/10/2007 VIRTUAL COLONOSCOPY 06/10/2007 PNEUMOCOCCAL VACCINES (50+ years) (2 of 2 - PCV) 07/20/2011 07/19/2010 ZOSTER VACCINES (1 of 2) 2012 INFLUENZA VACCINE (#1) 2024 , 12/31/2020, 01/21/2020, Additional history exists COVID-19 VACCINE ( season) 2024 11/21/2021, 12/31/2020, 05/11/2020, Additional history exists CREATININE LEVEL 09/17/2025 09/17/2024, 10/16/2023 SCREENING FOR DIABETES 09/18/2027 09/17/2024 Adult Td,Tdap Booster 07/13/2032 07/13/2022 , 02/29/2020, 11/16/2011 RSV VACCINE (1 - 1-dose 75+ series) 2037 HEPATITIS A VACCINES Aged Out No long er eligible based on patient's age to complete this topic HIB VACCINES Aged Out No longer eligi ble based on patient's age to complete this topic IPV VACCINES Aged Out No longer eligi ble [...] sliver of skin of finger, initial encounter FOREIGN BODY REMOVAL Routine 12/02/2024 2:22 PM EDT Infected sliver of skin of finger, initial encounter BASIC METABOLIC PANEL (BMP) STAT 09/17/2024 8:36 PM EDT from Last 3 Months or Most Recently Relevant to Health Maintenance Results * XR FINGER 2 OR MORE [...] dislocation. No radiopaque foreign body. Ladonna Ng DRIVING TEACHER IMG XR UPPER EXTREMITY Lupis l Result * FOREIGN BODY REMOVAL (12/02/2024 2:22 PM EDT) Other Narrative Ladonna Ng CNP - 12/02/2024 2:22 PM EDT Ladonna Ng CNP 12/02/2024 2:33 PM Foreign Body Removal Date/Time: 12/02/2024 2:22 PM Performed by: Ladonna Ng CNP Authorized by: Ladonna Ng CNP Location: Body area: Skin General location: Upper extremity Location details: Left index finger Patient sedated?: No Procedure Details: Localization method: Probed Removal mechanism: Forceps and irrigation Dressing: Antibiotic ointment Depth: Subcutaneous Complexity: Simple Objects recovered (#): 0 Post-procedure assessment: Foreign body not removed Patient tolerance: Patient tolerated the procedure well with no immediate complicationsComments: Foreign body sustained 30 days prior, patient picking at-there is scar tissue and swelling Ladonna Ng CNP PROCEDURE/MINOR SURGICAL OR DERABLES Final Result * (ABNORMAL) Basic metabolic panel (09/17/2024 8:36 PM EDT) SODIUM 140 133 - 146 mmol/L [facility] CHLORIDE 106 96 - 108 mmol/L [facility] POTASSIUM 4.2 3.3 - 5.1 mmol/L [facility] Comment:Specimen slightly he molyzed, result may be falsely elevated. CO2 22 21 - 35 mmol/L [facility] BUN 22(H) 6 - 19 mg/dL [facility] CREATININE 0.80 0.5 - 1.5 mg/dL [facility] GLUCOSE 118(H) 70 - 99 mg/dL [facility] CALCIUM 9.5 8.4 - 10.3 mg/dL [facility] EGFR 100 >59 mL/min/1.7 3m2 [facility] Comment:Estimated glomerular filtration rate calculated using the CKD-EPI refit equation. ANION GAP 16 10 - 20 mmol/L [facility] Blood 09/17/2024 8:36 PM EDT 09/17/2024 8:41 PM EDT us Ping Jimenez MD LAB BLOOD BKR ORDERABLES Final Result [address] [address] from Last 3 Months or Most Recently Relevant to Health Maintenance Insurance [address] [place] [address] HMO Care Teams Bookkeeping Machine Mechanic Relationship Specialty Start Date End Date Estela Russ MD [address] [place] [address] PCP - General Family Medicine 10/16/23 Shawna Lopez MBBS [address] [place] [address] Medical Oncology 09/21/23 Additional Source Comments The information contained in this document represents components of the legal health record. It is not the complete legal health record.[facility]
--- OUTSIDE RECORDS SUMMARY | 2025-01-02 07:51 | XMS_ITS | Encounter Summary ---
Author Organization [facility] Address [address] [place] [address] Phone Care Team Providers Care Fluorescent Solution Mixer Name Role Phone Shawna Lopez CANDE Unavailable [phone] Estela Russ MD Primary Care Provider [phone] Encounter Details Date Type Department Care Team (Late st Contact Info) Description 09/17/2024 Procedure Pass [facility], Ct Scan - [address] [address] Social History Tobacco Use Types Packs/Day Years [...] 6:54 PM EDT Maki Quintana RN * [place] Suicide Severity Rating Scale (Screener/Recent Self-Report) Question [...] on filedocumented in this encounter Care Teams Fluorescent Solution Mixer Relationship Specialty Start Date End Date Estela Russ MD [address] [place] [address] [email or web address] PCP - General Family Medicine 10/16/23 Shawna Lopez MBBS [address] [place] [address] [email or web address] Medical Oncology 09/21/23 documented as of this encounter Additional Source Comments The information contained in this document represents components of the legal health record. It is not the complete legal health record.[facility]
--- OUTSIDE RECORDS SUMMARY | 2025-01-02 07:51 | XMS_ITS | Encounter Summary ---
Author Organization [facility] Address [address] [facility] [address] [place] [address] Phone Care Team Providers Care Reading Interventionist Name Role Phone Estela Russ MD Primary Care Provider [phone] Shawna LopezBS Unavailable [phone] Estela Russ MD Primary Care Provider [phone] Encounter Details Date Type Department Care Team (Late st Contact Info) Description 11/23/2021 Procedure Pass [facility], Ct Scan - [address] [address] Social History Tobacco Use Types Packs/Day Years [...] on filedocumented in this encounter Care Teams Reading Interventionist Relationship Specialty Start Date End Date Estela Russ MD PCP - General Family Medicine 07/09/21 10/15/23 Estela Russ MD [address] [place] [address] [email or web address] PCP - General Family Medicine 10/16/23 Shawna Lopez MBBS [address] [place] [address] [email or web address] Medical Oncology 09/21/23 documented as of this encounter Additional Source Comments The information contained in this document represents components of the legal health record. It is not the complete legal health record.[facility]
--- OUTSIDE RECORDS SUMMARY | 2025-01-02 07:51 | XMS_ITS | Encounter Summary ---
Author Organization [facility] Address [address] [place] [address] Phone Care Team Providers Care Clinical Coordinator Name Role Phone Shawna Lopez CANDE Unavailable [phone] Estela Russ MD Primary Care Provider [phone] Encounter Details Date Type Department Care Team (Late st Contact Info) Description 09/17/2024 Procedure Pass [facility], Ct Scan - [address] [address] Social History Tobacco Use Types Packs/Day Years [...] 6:54 PM EDT Maki Quintana RN * [place] Suicide Severity Rating Scale (Screener/Recent Self-Report) Question [...] on filedocumented in this encounter Care Teams Clinical Coordinator Relationship Specialty Start Date End Date Estela Russ MD [address] [place] [address] [email or web address] PCP - General Family Medicine 10/16/23 Shawna Lopez MBBS [address] [place] [address] [email or web address] Medical Oncology 09/21/23 documented as of this encounter Additional Source Comments The information contained in this document represents components of the legal health record. It is not the complete legal health record.[facility]
--- OUTSIDE RECORDS SUMMARY | 2025-01-02 07:51 | XMS_ITS | Clinical Summary ---
Author Organization [address] [facility] Address [address] [place] [address] Phone Care Team Providers Care Blacking Wheel Tender Name Role Phone Yuly Esqueda Primary Care Provider [phone] Medical History Medical History Date Comments Type 2 diabetes mellitus wit hout complications ([facility] V24, [facility] V28) DX:Type 2 magdaleno betes mellitus without complications ([facility]) Social History Tobacco Use Types Packs/Day Years Used Date Smoking Tobacco: Every Day Smokeless Tobacco: Never Alcohol Use Standard Drinks/Week Comments Not Currently 0 (1 standard drink = 0.6 oz pur e alcohol) Sex and Gender Information Value Date Recorded Sex Assigned at Not on file Legal Sex Male 11:04 AM EDT Gender Identity Not on file Sexual Orientation Not on file Obstetrics History Last Filed Vital Signs Vital Sign Reading Time Taken Comments Blood Pressure 153/75 05/03/2023 9:53 AM EDT Pulse 81 05/03/2023 9:53 AM EDT Temperature - - Respiratory Rate - - Oxygen Saturation - - Inhaled Oxygen Concentration - - Weight 99.8 kg (220 lb) 05/03/2023 9:53 AM EDT Height 172.7 cm (5' 8 ) 05/03/2023 9:53 AM EDT Body Mass Index 33.45 05/03/2023 9:53 AM EDT Plan of Treatment Upcoming Encounters Date Type Department Care Team (Late st Contact Info) Description 01/14/2025 8:30 AM EST Consult Orthopedic Surgery - [place] [id number] [id number] Gurinder Yañez DPM [address] [address] Health Maintenance Due Date Last Done Comments Colorectal Cancer Screening: Colonoscopy 1962 Diabetes: Annual GFR (Glomer ular Filtration Rate) 1962 Diabetes: Annual Foot Exam 1972 Diabetes: Annual Retina Eye Exam 1972 DTaP,Tdap,and Td Vaccines (1 - Tdap) 1981 Pneumococcal Vaccine: 50+ Ye ars (1 of 2 - PCV) 1981 Zoster Vaccines (1 of 2) 2012 Cholesterol Screening (Lipid Panel) 09/07/2023 Diabetes: Annual Urine Albumin-Creatinine Ratio (uACR) 09/07/2023 Diabetes: Blood Sugar Contro l Test (HGBA1C) 09/07/2023 HIV Screening 09/07/2023 Hepatitis C Screening 09/07/2023 Hypertension/CHF/CAD Annual BMP Blood Test 09/07/2023 Social Influencers of Health Screening 09/07/2023 Depression Screening 02/13/2024 COVID-19 Vaccine (1 - 2024-2 6 season) 2024 Influenza Vaccine (#1) 2024 RSV Immunization Adult Patie nts (1 - 1-dose 75+ series) 2037 HIB Vaccines Aged Out No longer eligi ble based on patient's age to complete this topic HPV Vaccines Aged Out No longer eligi ble based on patient's age to complete this topic Hepatitis A Vaccines Aged Out No long er eligible based on patient's age to complete this topic Hepatitis B Vaccines Aged Out No long er eligible based on patient's age to complete this topic IPV Vaccines Aged Out No longer eligi ble based on patient's age to complete this topic MMR Vaccines Aged Out No longer eligi ble based on patient's age to complete this topic Meningococcal ACWY Vaccine Aged Out N o longer eligible based on patient's age to complete this topic Meningococcal B Vaccine Aged Out No l onger eligible based on patient's age to complete this topic RSV Immunization Patients Un rusty 20 months Aged Out No longer eligible b ased on patient's age to complete this topic Varicella Vaccines Aged Out No longer eligible based on patient's age to complete this topic Insurance [facility] [address] [place] [address] Care Teams Blacking Wheel Tender Relationship Specialty Start Date End Date Yuly Esqueda [address] [place] [address] [address] [place] [address] PCP - General Family Medicine 09/22/24
[2025-01-02 07:53] VITALS: BP 132/72; PULSE 74; O2SAT 98; BMI 31.7
--- NOTE | 2025-01-02 07:53 | A.OFFVIS_ITS ---
Vital Signs 01/02/25 07:53 Height 5 ft 8 in Weight 208 lb 12.444 oz BMI 31.7 BP 132/72 Blood Pressure Location Lt brachial Position Sitting Pulse 74 Pulse Source Pulse Oximeter Pulse Oximetry (%) 98 Oxygen Delivery Method Room Air Intake Visit Reasons: T2DM Intake Note: Patient present today for Type 2 Diabetes Mellitus Last Diabetic eye exam: Last exam was within the year Last Podiatry Visit: Doesn't have one Random Glucose: 124 mg/dl HgA1C: 6.4% Adjuster Arbitrator Required: No Accompanied by: Self / Same As Patient Allergies amoxicillin Allergy (Verified 01/02/25 07:58) Rash iodine Allergy (Verified 01/02/25 07:58) Unknown meperidine (From Demerol) Allergy (Verified 01/02/25 07:58) Unknown shellfish derived Allergy (Verified 01/02/25 07:58) Unknown Medication List - Last Reconciled 01/02/25 by Aleja Olivas PA-C blood sugar diagnostic (FreeStyle Lite Strips) Uses twice daily as directed for monitoring glucose blood-glucose sensor (FreeStyle Keila 3 Plus Sensor device) As directed blood-glucose,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 He reports a significant past medical history of hyperlipidemia and states that he is working very hard on diet. Endo: He was diagnosed with diabetes 2019. His last A1c at his PCP's office was 7.6 and today is 6.4. He is currently on Trulicity 0.75 mg weekly. He states since being on Trulicity his blood sugar numbers have significantly improved. He has also lost weight with this medication and is trying very hard to change his lifestyle. He has noted with the holidays/[place] trip some more dietary indiscretions. He was previously on metformin but this caused significant diarrhea and GI upse t. He has been off of it for about a month in his feeling a lot better. cgm-average use 98%, G mi 6.4%. 0% very hyperglycemic, 3% hyperglycemic, 97% in range, 0% hypoglycemic His mother has type 2 diabetes CV: Blood pressure today in the office is 132/72. He is not on any antihypertensives or statins. Last LDL was 169. He used to take atorvastatin and tolerated it well. He states he wants to go back on it. He is trying hard to work on his diet to lower his cholesterol. [facility] Medical History (Updated 09/12/24 @ 08:58 by Aleja Olivas PA-C) History of tobacco use History of hyperlipidemia History of type 2 diabetes mellitus Surgical History No pertinent past surgical history Family History Father No problems noted. Mother Type 2 diabetes mellitus Sickle cell disease Brother Type 2 diabetes mellitus Social History Patient Tobacco Use Status: Current everyday Tobacco user Physical Exam Vital Signs: Last Vital Signs Pulse 74 01/02/25 07:53 BP 132/72 01/02/25 07:53 Pulse Ox 98 01/02/25 07:53 Oxygen Delivery Method Room Air 01/02/25 07:53 BMI result Body Mass Index 31.7 Const Orientation/consciousness: patient oriented x3 Neck Neck: Yes no lymphadenopathy Thyroid: Thyroid normal Carotids: no bruits Resp Auscultation: clear to auscultation bilaterally Cardio Rate: regular rate Rhythm: regular rhythm Heart sounds: S1 normal heart sound present and S2 normal heart sound present Neuro General: patient oriented x3, gait normal and no focal motor deficits Results AMB Hemoglobin A1c AMB Hemoglobin A1c 6.4 % Last Edit by JUNO Pires on 01/02/25 08:10 Results Reviewed Results Reviewed: Laboratory Last Values Glucose (Clinic) 124 mg/dL (60-115) H 01/02/25 08:00 Assessment & Plan Assessment & Plan (1) Controlled type 2 diabetes mellitus: Code(s): E11.9 - Type 2 diabetes mellitus without complications Category: Medical Plan: increase trulicity to 1.5 mg weekly labs ordered and advised to check before next visit (2) HLD (hyperlipidemia): Code(s): E78.5 - Hyperlipidemia, unspecified Category: Medical Plan: will start atorvastatin 10 mg will recheck labs in a couple months continue with diet changes Orders: Orders 2 AMB Hemoglobin A1c Today E11.9 - Type 2 diabetes mellitus without complications, Z13.9 - Encounter for screening, unspecified Medications: New dulaglutide (Trulicity) 1.5 mg (0.5 mL) subcut QWEEK 6 mL 3RF atorvastatin (Lipitor) 10 mg PO BEDTIME 90 tabs 1RF Discontinued dulaglutide (Trulicity) Discontinued Reason: Duplicate 0.75 mg (0.5 mL) subcut QWEEK 6 mL 3RF Coding Level of Care Code Complex visit Add On G2211 Diagnoses Controlled type 2 diabetes mellitus E11.9 HLD (hyperlipidemia) E78.5
[2025-01-02 08:04] LABS: Glucose, Whole Blood 124 mg/dL (60-115)
== END 2025-01-02 08:26 | disposition home or self-care (01) ==
LOC: HO.ENCR 07:49
PROVIDERS: PCP Nurse Practitioner Primary Care; Visit Provider Physician Assistant
DX: E11.9 Type 2 diabetes mellitus without complications (principal); E78.5 Hyperlipidemia, unspecified; Z13.9 Encounter for screening, unspecified

== ENCOUNTER → 2025-01-02 07:48 | Outpatient (BNVA) | payer OTHER, SELFPAY | PROVIDERS: PCP Nurse Practitioner Primary Care; Visit Provider Physician Assistant | DX: E11.9 Type 2 diabetes mellitus without complications (principal); E78.5 Hyperlipidemia, unspecified | CPT/HCPCS: 82947; 83036 ==